=== PATIENT | female | born 2000 | race Caucasian/White ===

== ENCOUNTER 2020-11-19 17:13 | Emergency (ER) | payer BC, SELFPAY ==
[2020-11-19 17:31] VITALS: BP 129/77; PULSE 90; RESP 20; TEMP 36.6; O2SAT 97
--- NOTE | 2020-11-19 17:52 | ED.ABDPAIN ---
HPI - Abdominal Pain General Chief Complaint: Urogenital-Female Stated Complaint: UTI Source: patient Mode of arrival: ambulatory Limitations: no limitations History of Present Illness HPI narrative: this is a 20-year-old female that presents with a approximately off and on 1 month history of urinary frequency with dysuria and suprapubic pressure and tenderness, has been prone to urinary tract infections. Was chest at another ER facility and was prescribed Omnicef which she claims she is allergic to and subsequently presents to our emergency department. Currently there is no nausea vomiting no flank pain no hematuria no diarrhea constipation. MD elicited complaint: abdominal pain Pertinent past history: past UTI Onset (ago): week(s) Pain Consistency: intermittent Location: suprapubic Severity: mild Related Data Allergies Allergy/AdvReac Type Severity Reaction Status Date / Time amoxicillin AdvReac Rash Verified 11/19/20 17:36 azithromycin [From Zithromax] AdvReac Rash Verified 11/19/20 17:36 cefdinir [From Omnicef] AdvReac Rash Verified 11/19/20 17:36 nitrofurantoin AdvReac Rash Verified 11/19/20 17:36 [From Macrobid] Review of Systems Review of Systems: All systems reviewed & are unremarkable except as noted in HPI and below PMFSH Past Medical History Medical History History of recurrent UTIs Social History Social History Gender identity (if verbalized by the patient): Female Exam Const: General: no acute distress and alert Orientation/consciousness: patient oriented x3 HENMT: Head: normal to inspection Eyes: Conjunctivae: conjunctivae normal Pupils: Equal, round and reactive pupils present EOM: EOMs intact bilaterally Direct Ophthalmoscopy: no photophobia Neck: Neck: normal visual inspection, no lymphadenopathy and no meningeal signs Chest: Chest palpation & inspection: normal inspection of the chest Resp: Effort & Inspection: normal respiratory effort Auscultation: clear to auscultation bilaterally Cardio: Rate: regular rate Rhythm: regular rhythm GI: GI Palp: Yes Soft to palpation and Yes Tenderness to palpation present (GI) ( suprapubic tenderness with palpation) : General: Yes no CVA tenderness Urinary Catheter: Urinary Catheter: patent and draining Back/Spine/Pelvis: Back: no CVA tenderness Skin: General skin exam: normal color Rashes: no rashes Neuro: General: patient oriented x3, moves all extremities, no meningeal signs and no focal motor deficits Extrem: General: normal to inspection and no pedal edema Psych: Appearance: grossly normal Mental Status: mental status grossly normal Affect: normal affect Course Course Emergency Course: patient received pain medication at previous emergency department and declined pain medication currently. The patient had a urinalysis performed and and 1 over Maryellen result with patient. Vital Signs Vital signs: Vital Signs Temperature 36.6 C 11/19/20 17:31 Pulse Rate 90 11/19/20 17:31 Respiratory Rate 20 11/19/20 17:31 Blood Pressure 129/77 11/19/20 17:31 Pulse Oximetry 97 11/19/20 17:31 Temperature 36.6 C 11/19/20 17:31 Pulse Rate 90 11/19/20 17:31 Respiratory Rate 20 11/19/20 17:31 Blood Pressure 129/77 11/19/20 17:31 Pulse Oximetry 97 11/19/20 17:31 Critical Care Time Critical Care Time Critical Care Time: No Discharge Plan Discharge Clinical Impression: Urinary tract infection Patient Disposition: Home, Self-Care Condition: Stable Instructions: Antibiotic Form, Urinary Tract Infection in Women (ED) Additional Instructions: Advised to follow-up primary care physician within 1 to 2 weeks and take medicine as prescribed. Prescriptions: New sulfamethoxazole-trimethoprim [Bactrim DS] 800-160 mg tablet 1 tablet PO Q12H Qty: 14 RF: 0 Follow-up/Referrals
[2020-11-19 18:06] LABS: Add Urine Microscopic? NO; Appearance Urine Clear (Clear); Bilirubin Urine Negative (Negative); Blood Urine Negative (Negative); Color Urine Yellow (Yellow); Glucose Urine UA Negative (Negative); Ketones Urine Negative (Negative); Leukocyte Esterase Ur Negative (Negative); Nitrate Urine Negative (Negative); Protein Urine Negative (Negative); Specific Grav Ur >= 1.030 (1.010-1.020); Urobilinogen Urine 0.2 mg/dL (0.2-1.0)
[2020-11-19 18:25] VITALS: BP 130/72; PULSE 88; RESP 20; TEMP 36.7; O2SAT 98
== END 2020-11-19 18:27 | disposition home or self-care (01) ==
PROVIDERS: Emergency Provider Emergency Medicine
DX: N39.0 Urinary tract infection, site not specified (principal)
CPT/HCPCS: 81003; 99283

== ENCOUNTER 2022-07-19 10:12 | Emergency (ER) | payer BC, SELFPAY ==
[2022-07-19 10:55] VITALS: BP 122/63; PULSE 73; RESP 18; TEMP 35.8; O2SAT 100
--- NOTE | 2022-07-19 11:00 | ED.URI ---
HPI - URI/Sore Throat General Chief Complaint: Upper Respiratory Infection Stated Complaint: congestion,wheezing,cough Time Seen by Provider: 07/19/22 11:00 Source: patient and RN notes reviewed Mode of arrival: ambulatory Limitations: no limitations History of Present Illness HPI Narrative: 22-year-old female presented for complaint of sinus congestion, cough, and left ear pain. She endorses a cough is worse at night and is associated with wheezing at times. Patient reports left ear pain since May. She states she took of family members oral antibiotic with temporary relief. She denies tinnitus, dizziness, chest pain, shortness of breath, nausea, vomiting, diarrhea, fever or chills. She endorses her mother is being treated for a upper respiratory infection at this time. MD elicited complaint: cough Related Data Home Medications Medication Instructions Recorded Confirmed fluoxetine 20 mg capsule 20 mg PO DAILY 07/19/22 07/19/22 Allergies Allergy/AdvReac Type Severity Reaction Status Date / Time amoxicillin AdvReac Mild Rash Verified 07/19/22 10:40 azithromycin [From Zithromax] AdvReac Mild Rash Verified 07/19/22 10:40 cefdinir [From Omnicef] AdvReac Mild Rash Verified 07/19/22 10:40 nitrofurantoin AdvReac Mild Rash Verified 07/19/22 10:40 [From Macrobid] Review of Systems Review of Systems: ROS per [facility] Past Medical History Medical History History of recurrent UTIs Social History Social History Gender identity (if verbalized by the patient): Female Exam Narrative: GENERAL: Ill-appearing, nontoxic EYES: PERRLA, conjunctivae clear ENT: Mucous membranes moist. right TM pearly so with dull light reflex; left TM erythematous, bulging with purulent effusion; no tragal tenderness. Oropharynx erythematous without lesions or exudate NECK: Supple. No lymphadenopathy CHEST: Clear to auscultation, breath sounds equal. No wheezing, rhonchi, rales, or stridor. HEART: Regular rate and rhythm. No murmur heard. SKIN: Warm, dry, no rash. NEURO: Alert and oriented x3. PSYCH: Normal mood and affect Course Course Emergency Course: Patient is aware of diagnosis, understands and agrees to treatment plan. Anticipatory guidance given. Patient agrees to follow-up as directed and is aware of reasons to seek care at the emergency department. Portions of this record may have been created with voice recognition software Level of Care: Express Care Visit Vital Signs Vital signs: Vital Signs Temperature 96.5 F L 07/19/22 10:55 Pulse Rate 73 07/19/22 10:55 Respiratory Rate 18 07/19/22 10:55 Blood Pressure 122/63 07/19/22 10:55 Pulse Oximetry 100 07/19/22 10:55 Oxygen Delivery Room Air 07/19/22 10:55 Temperature 96.5 F L 07/19/22 10:55 Pulse Rate 73 07/19/22 10:55 Respiratory Rate 18 07/19/22 10:55 Blood Pressure 122/63 07/19/22 10:55 Pulse Oximetry 100 07/19/22 10:55 Oxygen Delivery Room Air 07/19/22 10:55 reviewed MDM - URI/Sore Throat MDM Narrative Medical decision making narrative: Trate for AOM, several allergies. Advised supportive measures and signs/symptoms to go to the ER. Pt is appropriate for outpt treatment and f/u. Differential Diagnosis Differential diagnosis: Likely upper respiratory infection, otitis media, sinusitis, viral infection and influenza Discharge Plan Discharge Clinical Impression: Otitis media, Upper respiratory infection Patient Disposition: Home, Self-Care Condition: Stable Instructions: Antibiotic Form, Ear Infection (ED) Additional Instructions: Take antibiotics as directed. Recommend antihistamine such as Benadryl, Zyrtec or Lori for sinus congestion Flonase nasal spray, 1 spray in each nostril once daily until symptoms improve Symptomatic treatment includes: rest, fluids, and increase humid
== END 2022-07-19 11:15 | disposition home or self-care (01) ==
PROVIDERS: Emergency Provider Nurse Practitioner Family
DX: H66.92 Otitis media, unspecified, left ear (principal); J06.9 Acute upper respiratory infection, unspecified
CPT/HCPCS: 99213; G0463

== ENCOUNTER 2022-08-24 14:24 | Emergency (ER) | payer BC, SELFPAY ==
[2022-08-24 14:35] VITALS: BP 136/72; PULSE 95; RESP 18; TEMP 36.8; O2SAT 99
--- NOTE | 2022-08-24 14:40 | ED.EAR ---
HPI - Ear Problem General Chief complaint: Ear Stated complaint: congestion,bilateral ear pain Time Seen by Provider: 08/24/22 14:40 Source: patient Mode of arrival: ambulatory Limitations: no limitations History of Present Illness HPI Narrative: 22-year-old female presents with complaint of bilateral ear pain. Reports she had similar ear pain 2 weeks ago and was given antibiotic. Reports pressure in ears. Afebrile. No other symptoms today. All systems reviewed and negative except as noted above. Related Data Allergies Allergy/AdvReac Type Severity Reaction Status Date / Time amoxicillin AdvReac Mild Rash Verified 07/19/22 10:40 azithromycin [From Zithromax] AdvReac Mild Rash Verified 07/19/22 10:40 cefdinir [From Omnicef] AdvReac Mild Rash Verified 07/19/22 10:40 nitrofurantoin AdvReac Mild Rash Verified 07/19/22 10:40 [From Macrobid] Review of Systems Review of Systems: CONSTITUTIONAL: Denies fever, chills, or sweats. EYES: Denies visual changes, redness, or discharge. ENT: Denies rhinorrhea, congestion, sore throat . Reports bilateral ear pain. CARDIOVASCULAR: Denies chest pain, palpitations, or edema. RESPIRATORY: Denies cough or dyspnea. GASTROINTESTINAL: Denies abdominal pain, nausea, vomiting, or diarrhea. GENITOURINARY: Denies dysuria or hematuria. SKIN: Denies rash or itching. MUSCULOSKELETAL: Denies back pain, joint pain, or myalgia. NEUROLOGIC: Denies headache, numbness, or weakness. PSYCHIATRIC: Denies anxiety or depression. All other systems reviewed are negative, except as documented in HPI. PMFSH Past Medical History Medical History History of recurrent UTIs Social History Social History Gender identity (if verbalized by the patient): Female Comments At time of signature, agree with nursing past medical, surgical, social and family history. There is no relevant family history pertinent to the presenting complaint. Exam Narrative: GENERAL: This is a well-nourished, well-developed patient, in no apparent distress. HEAD: normocephalic, atraumatic. EYES: PERRL. Sclera clear/white. Vision is grossly intact. EARS: External ears normal, auditory canals clear and without drainage,fluid to bilateral TMs, no erythema NOSE: External nose normal with no obvious nasal discharge, nares without redness, no rhinorrhea. THROAT: Mucous membranes moist, posterior pharynx clear. NECK: Neck supple, non-tender without lymphadenopathy, masses or thyromegaly. CARDIOVASCULAR: Regular rate and rhythm without murmurs, gallops, or rubs. RESPIRATORY: Clear to auscultation. Breath sounds equal bilaterally. No wheezes, rales, or rhonchi. SKIN: warm, Dry, intact with no suspicious lesions or rash, good texture and turgor. NEURO: awake, alert, and oriented to person, place and time. There were no obvious focal neurologic abnormalities. EXTREMITIES: No joint tenderness, effusion, or edema noted. Course Course Level of Care: Express Care Visit Vital Signs Vital signs: Vital Signs Temperature 36.8 C 08/24/22 14:35 Pulse Rate 95 08/24/22 14:35 Respiratory Rate 18 08/24/22 14:35 Blood Pressure 136/72 08/24/22 14:35 Pulse Oximetry 99 08/24/22 14:35 Oxygen Delivery Room Air 08/24/22 14:35 Temperature 36.8 C 08/24/22 14:35 Pulse Rate 95 08/24/22 14:35 Respiratory Rate 18 08/24/22 14:35 Blood Pressure 136/72 08/24/22 14:35 Pulse Oximetry 99 08/24/22 14:35 Oxygen Delivery Room Air 08/24/22 14:35 reviewed Medical Decision Making MDM Narrative Medical decision making narrative: Patient is aware of diagnosis, understands and agrees to treatment plan. Anticipatory guidance given. Patient agrees to follow-up as directed and is aware of reasons to seek care at the emergency department. Portions of this record may have been created with voice recognition software
== END 2022-08-24 15:01 | disposition home or self-care (01) ==
PROVIDERS: Emergency Provider Nurse Practitioner Family
DX: H69.93 Unspecified Eustachian tube disorder, bilateral (principal)
CPT/HCPCS: 99213; G0463

== ENCOUNTER 2023-02-11 14:11 | Emergency (ER) | payer BC, SELFPAY ==
[2023-02-11 14:19] VITALS: BP 119/74; PULSE 90; RESP 20; TEMP 36.5; O2SAT 98
--- NOTE | 2023-02-11 14:20 | ED.GENADULT ---
HPI - General Adult General Chief complaint: Upper Respiratory Infection Stated complaint: Headache Time Seen by Provider: 02/11/23 14:22 Source: patient Mode of arrival: ambulatory Limitations: no limitations History of Present Illness HPI narrative: 22 y/o female presented for c/o frontal headache for about 3 days. Endorses associated nausea. Rates pain 8/10. Taking Tylenol without relief, last dose last night. Takes claritin for seasonal allergies but has not been taking it. Denies photophobia, vision changes, dizziness, vomiting, fever or chills. Missed work today. Reports increased stress and working more often. Related Data Home Medications Medication Instructions Recorded Confirmed No Home Medications 02/11/23 02/11/23 Allergies Allergy/AdvReac Type Severity Reaction Status Date / Time amoxicillin AdvReac Mild Rash Verified 02/11/23 14:19 azithromycin [From Zithromax] AdvReac Mild Rash Verified 02/11/23 14:19 cefdinir [From Omnicef] AdvReac Mild Rash Verified 02/11/23 14:19 nitrofurantoin AdvReac Mild Rash Verified 02/11/23 14:19 [From Macrobid] Review of Systems Review of Systems: CONSTITUTIONAL: Denies body aches, fever, chills, or sweats. EYES: Denies visual changes, redness, or discharge. ENT: Denies rhinorrhea, congestion, sore throat, or otalgia. CARDIOVASCULAR: Denies chest pain, palpitations, or edema. RESPIRATORY: Denies cough or dyspnea. GASTROINTESTINAL: Denies abdominal pain, nausea, vomiting, or diarrhea. GENITOURINARY: Denies dysuria or hematuria. SKIN: Denies rash, itching, or wounds. MUSCULOSKELETAL: Denies back pain, joint pain, or myalgia. NEUROLOGIC: Reports headache, Denies numbness, tingling, or weakness. All systems reviewed & are unremarkable except as noted in HPI and below PMFSH Past Medical History Medical History (Updated 02/11/23 @ 14:46 by Francesca Grimaldo APRN) Endometriosis History of recurrent UTIs Social History Social History Gender identity (if verbalized by the patient): Female Comments At time of signature, I have reviewed and agree with nursing past medical, surgical, social and family history unless otherwise noted. Please see nursing chart for further information. There is no relevant family history pertinent to the presenting complaint Exam Narrative: GENERAL: Well-appearing, in no acute distress. HEAD: Normocephalic, atraumatic. EYES: EOMI. PERRLA. Conjunctivae normal. ENT: Mucous membranes pink and moist. No rhinorrhea. TMs normal bilaterally. Throat normal. Uvula midline. NECK: Normal AROM. Supple. CHEST: No respiratory distress. Clear to auscultation. HEART: Regular rate and rhythm. No murmur appreciated. Normal peripheral pulses. ABDOMEN: Soft, nontender, nondistended, normal active bowel sounds. EXTREMITIES: Normal range of motion. No edema. SKIN: Warm, dry, no rash. Capillary refill normal. Normal skin turgor. NEURO: No focal deficits. Alert and oriented x3. Gait steady. PSYCH: Normal affect. Course Course Emergency Course: Patient is aware of diagnosis, understands and agrees to treatment plan. Anticipatory guidance given. Patient agrees to follow-up as directed and is aware of reasons to seek care at the emergency department. Portions of this record may have been created with voice recognition software Level of Care: Express Care Visit Medical Decision Making MDM Narrative Medical decision making narrative: Patient stated her LMP was 'spotting' last month, however she has hx endometriosis and reports no menses for 5 months prior to that. Neg preg. Patient's headache was not sudden or maximal in onset. There are no focal deficits on exam. Subarachnoid hemorrhage is felt to be unlikely at this time. There is no history of fever and neck is supple to evaluation without meningismus. Meningitis is felt to be unlikely. No traumatic history or signs of trauma
== END 2023-02-11 14:44 | disposition home or self-care (01) ==
PROVIDERS: Emergency Provider Nurse Practitioner Family
DX: R51.9 Headache, unspecified (principal); N80.9 Endometriosis, unspecified
CPT/HCPCS: 81025; 99212; G0463